=== PATIENT | female | born 1945 | race Caucasian/White ===

== ENCOUNTER 2018-11-23 15:08 | Inpatient (IN) | payer MEDICARE, OTHER ==
[~2018-11-23] VITALS: Ht 165.1 cm; Wt 59.4 kg
[2018-11-23] MEDS ORDERED: normal saline 1000ML IV soln IVB ONE (15:25)
[2018-11-23 15:48] LABS: BASOPHILS % (AUTO) 0.6 % (0-1); EOSINOPHILS % (AUTO) 0.5 % (0-6); HEMOGLOBIN 14.2 g/dl (12.0-16.0); LYMPHOCYTES # (AUTO) 1.8 X10'3 (1.1-4.8); LYMPHOCYTES % (AUTO) 28.7 % (21-51); MEAN CORPUSCULAR HEMOGLOBIN 32.2 PG (27.0-31.0); MEAN CORPUSCULAR HGB CONC 33.8 g/dL (33.0-36.5); MEAN CORPUSCULAR VOLUME 95.2 FL (78-98); MEAN PLATELET VOLUME 8.2 FL (7.4-10.4); MONOCYTES # (AUTO) 0.4 X10'3 (0-0.9); MONOCYTES % (AUTO) 6.9 % (2-12); NEUTROPHILS # (AUTO) 4.1 X10'3 (1.8-7.7); NEUTROPHILS % (AUTO) 63.3 % (42-75); PLATELET COUNT 245 X10'3 (140-440); RED BLOOD COUNT 4.41 X10'6 (4.20-5.60); RED CELL DISTRIBUTION WIDTH 12.9 % (11.5-14.5); WHITE BLOOD COUNT 6.5 X10'3 (4.5-11.0)
[2018-11-23 15:56] LABS: ALANINE AMINOTRANSFERASE 21 U/L (12-78); ALBUMIN 4.1 G/DL (3.4-5.0); ALBUMIN/GLOBULIN RATIO 0.9 (1.1-1.5); ALKALINE PHOSPHATASE 58 IU/L (46-116); ANION GAP 11 (8-16); ASPARTATE AMINO TRANSFERASE 19 U/L (10-37); BILIRUBIN,TOTAL 0.8 MG/DL (0.1-1.0); BLOOD UREA NITROGEN 12 MG/DL (7-18); BUN/CREATININE RATIO 11.3 (6.6-38.0); CALCIUM 10.7 MG/DL (8.5-10.1); CHLORIDE 100 MMOL/L (99-107); CREATININE 1.06 MG/DL (0.40-0.90); GLUCOSE 96 MG/DL (70-104); SODIUM 137 MMOL/L (135-145); TOTAL CARBON DIOXIDE 26.5 MMOL/L (24-32); TOTAL PROTEIN 8.7 G/DL (6.4-8.2); eGFR 51 ML/MIN
[2018-11-23] MEDS ORDERED: ipratropium/albuterol 3ml nebule NEB ONE (16:25)
[2018-11-23] MEDS ORDERED: OXYB5TAB16 PO (18:14)
[2018-11-23] MEDS ORDERED: OMEP-50 PO (18:14)
[2018-11-23] MEDS ORDERED: ACYC400T PO (18:14)
[2018-11-23] MEDS ORDERED: ESCI10TA54 PO (18:14)
[2018-11-23] MEDS ORDERED: ALBU18HF2 PO (18:14)
[2018-11-23] MEDS ORDERED: magnesium 4gm in 100ml NS 100 ML IV PRN (18:45)
[2018-11-23] MEDS ORDERED: magnesium hydroxide 30ml (MOM) UD suspension PO PRN (18:45)
[2018-11-23] MEDS ORDERED: magnesium Cl slow-release 64mg tablet PO PRN (18:45)
[2018-11-23] MEDS ORDERED: potassium CL 10mEq/100ml bag 100 ML IV PRN ×2 (18:45)
[2018-11-23] MEDS ORDERED: magnesium 2GM in 50ml NS 50 ML IV PRN (18:45)
[2018-11-23] MEDS ORDERED: metoclopramide 5 mg/ml inj IV PRN (18:45)
[2018-11-23] MEDS ORDERED: mag hydrox/Alum hydrox/simeth 30ml oral suspension PO PRN (18:45)
[2018-11-23] MEDS ORDERED: acetaminophen 325mg tablet PO PRN (18:45)
[2018-11-23] MEDS ORDERED: potassium Cl 20 mEq SR tablet PO PRN ×2 (18:45)
[2018-11-23 19:36] LABS: PHOSPHORUS 4.5 MG/DL (2.3-4.5)
[2018-11-23] MEDS: pantoprazole 40 MG vial IV SCH (19:59)
[2018-11-23] MEDS: normal saline 1000ml 1,000 ML IV SCH ×2 (19:59→22:59)
--- NOTE | 2018-11-23 20:11 | NUR ---
PT STATES SHE HAS A HARD TIME SLEEPING WHEN SHE IS NOT AT HOME. sHE IS REQUESTING MELATONIN
--- NOTE | 2018-11-23 21:53 | NUR ---
Patient resting comfortably on gurney, pending hospital admit. Family is at the bedside, I will continue to monitor.
[2018-11-23 23:20] VITALS: BP 141/77
[2018-11-23] MEDS ORDERED: guaiFENesin/DM/phenylephrine syrup 120ml bottle PO PRN (23:30)
[2018-11-23] MEDS ORDERED: guaiFENesin/DM 10ml UD oral syrup PO PRN (23:41)
[2018-11-23] MEDS ORDERED: FLU VACC QS2019-20 36MOS UP/PF 60 MCG/0.5 ML SYRINGE IMVAC ONE (23:45)
[2018-11-23] MEDS ORDERED: Melatonin 3mg tablet PO ONE (23:50)
[2018-11-24 04:58] LABS: HEMATOCRIT 38.1 % (35.0-45.0); HEMOGLOBIN 13.3 g/dl (12.0-16.0); MEAN CORPUSCULAR HEMOGLOBIN 32.8 PG (27.0-31.0); MEAN CORPUSCULAR HGB CONC 34.8 g/dL (33.0-36.5); MEAN CORPUSCULAR VOLUME 94.4 FL (78-98); MEAN PLATELET VOLUME 8.4 FL (7.4-10.4); PLATELET COUNT 198 X10'3 (140-440); RED BLOOD COUNT 4.04 X10'6 (4.20-5.60); RED CELL DISTRIBUTION WIDTH 12.8 % (11.5-14.5); WHITE BLOOD COUNT 5.7 X10'3 (4.5-11.0)
[2018-11-24 05:19] LABS: ALBUMIN 3.3 G/DL (3.4-5.0); ANION GAP 10 (8-16); BLOOD UREA NITROGEN 9 MG/DL (7-18); BUN/CREATININE RATIO 11.8 (6.6-38.0); CALCIUM 8.9 MG/DL (8.5-10.1); CHLORIDE 106 MMOL/L (99-107); CHOL/HDL RATIO 6.6 (0.00-4.99); CHOLESTEROL 185 MG/DL (0-200); CREATININE 0.76 MG/DL (0.40-0.90); GLUCOSE 90 MG/DL (70-104); HDL CHOLESTEROL 28 MG/DL (35-60); LDL CHOLESTEROL 136 MG/DL (50-100); MAGNESIUM 1.8 MG/DL (1.5-2.4); POTASSIUM 3.5 MMOL/L (3.5-5.1); SODIUM 140 MMOL/L (135-145); TOTAL CARBON DIOXIDE 24.3 MMOL/L (24-32); TRIGLYCERIDES 156 MG/DL (20-135); eGFR 75 ML/MIN
--- NOTE | 2018-11-24 06:01 | NUR ---
Problems reprioritized. Patient report given, questions answered & plan of care reviewed with CLAUDIO Suazo. Addendum: 11/24/18 at 0602 by Shawna Grady RN Amended: Links added.
[2018-11-24 07:17] VITALS: BP 130/78
[2018-11-24] MEDS: K and/or MAG REPLACEMENT MC SCH (08:00)
[2018-11-24] MEDS: ESCITALOPRAM OXALATE 5 MG TABLET PO SCH (08:00)
[2018-11-24] MEDS: pantoprazole 40 MG vial IV SCH ×2 (09:28→19:30)
[2018-11-24] MEDS ORDERED: iohexol 300mg/ml 100ml inj. ONE (09:41)
--- NOTE | 2018-11-24 09:47 | NUR ---
PAGER ID: [phone] MESSAGE: Jeannie Novak [id number] Pt requesting asthma inhaler. OK to order RT eval and tx? Lakeisha wooten
--- NOTE | 2018-11-24 12:11 | NUR ---
Abnormal lump to R side clavicle found during assessment - MD made aware, no new orders at this time.
[2018-11-24 12:37] VITALS: BP 138/73
--- NOTE | 2018-11-24 12:41 | NUR ---
Spoke with Nitin Espino pt. has a lower reflex preventing her to completely swallow but that it is not an upper throat issue. Recommends further evaluation via EGD. Notified .
[2018-11-24] MEDS ORDERED: FLU VACC QS2019-20 36MOS UP/PF 60 MCG/0.5 ML SYRINGE IMVAC ONE (16:00)
[2018-11-24] MEDS: normal saline 1000ml 1,000 ML IV SCH (16:21)
--- NOTE | 2018-11-24 16:28 | NUR ---
Malnutrition consult: Pt admit with worsening dysphagia, dysphonia, and reported wt loss with hx left vocal cord paralysis of unknown etiology. Per H&P pt states when she eats or drinks it feels like it would get stuck in her upper sternum and she would throw up. Pt seen at bedside reports low appetite and poor PO intake since she found out about the paralysis of the left vocal cord in June of this year. Pt states the last time she was able to eat without throwing her food back up was in July of this year. Pt reports not noting of this happening after consuming anything specific however reports she has tried eating multiple different foods. Pt reports UBW 160 lb, current documented wt is 132 lbs. This is severe wt loss of 17% in 5 months. Pt with no significant decrease in muscle strength, no edema, and no visible fat/muscle wasting. Given predicted suboptimal PO intake [employer] and severe wt loss pt meets criteria for malnutrition, MD notified. Pt s/p barium swallow study. Per ST pt with "no aspiration noted with food or liquids and with no delay in reflex however with mild residue at the base of the epiglottis which she cleared spontaneously. After a minute or two she began coughing due to some regurgitation." ST recommends NPO and and EGD to evaluate cause of regurgitation. Pt with an active clear liquid diet, d/w RN who states pt is in fact NPO, to be changed in EMR. Pt provided with RD contact information. Will continue to follow. Recommendations: 1) Advance to heart healthy diet as medically indicated 2) Nutrition support to meet nutrient needs if deemed unsafe for PO intake 3) Wt per rx Addendum: 11/24/18 at [address] Amended: Links added.
--- NOTE | 2018-11-24 18:36 | NUR ---
CHECKED ON PT. PT DOING WELL COMFORTABLE VISITING WITH A FRIEND. GAVE REPORT TO LACEY SNYDER.
--- NOTE | 2018-11-24 18:37 | NUR ---
Received report from Lakeisha SNYDER pt on RA, visitor at bedside, pt requested a popsicle., call light and items of freq use within reach.
[2018-11-24 19:00] VITALS: BP 180/99
[2018-11-24] MEDS ORDERED: albuterol 2.5 MG/3 ML nebule NEB PRN (19:05)
[2018-11-24] MEDS ORDERED: albuterol 2.5 MG/3 ML nebule ONE (19:17)
[2018-11-24] MEDS ORDERED: Melatonin 3mg tablet PO SCH (21:00)
[2018-11-24] MEDS: ondansetron/PF 4mg/2ml inj IV PRN (23:45)
[2018-11-25 00:11] VITALS: BP 133/75
[2018-11-25] MEDS: normal saline 1000ml 1,000 ML IV SCH ×2 (00:41→03:57)
--- NOTE | 2018-11-25 00:57 | NUR ---
Dr. olivarez ordered to continue tele for pt due to HR increasing to 140s when up
[2018-11-25 05:11] LABS: HEMOGLOBIN 13.4 g/dl (12.0-16.0); MEAN CORPUSCULAR HEMOGLOBIN 32.9 PG (27.0-31.0); MEAN CORPUSCULAR HGB CONC 34.5 g/dL (33.0-36.5); MEAN CORPUSCULAR VOLUME 95.5 FL (78-98); MEAN PLATELET VOLUME 8.3 FL (7.4-10.4); PLATELET COUNT 206 X10'3 (140-440); RED BLOOD COUNT 4.08 X10'6 (4.20-5.60); RED CELL DISTRIBUTION WIDTH 13.1 % (11.5-14.5); WHITE BLOOD COUNT 5.7 X10'3 (4.5-11.0)
[2018-11-25 05:19] LABS: ALBUMIN 3.6 G/DL (3.4-5.0); ANION GAP 11 (8-16); BLOOD UREA NITROGEN 6 MG/DL (7-18); BUN/CREATININE RATIO 9.1 (6.6-38.0); CALCIUM 8.7 MG/DL (8.5-10.1); CHLORIDE 106 MMOL/L (99-107); CREATININE 0.66 MG/DL (0.40-0.90); GLUCOSE 89 MG/DL (70-104); MAGNESIUM 1.8 MG/DL (1.5-2.4); POTASSIUM 3.7 MMOL/L (3.5-5.1); SODIUM 142 MMOL/L (135-145); eGFR 88 ML/MIN
--- NOTE | 2018-11-25 06:49 | NUR ---
Problems reprioritized. Patient report given, questions answered & plan of care reviewed with Lakeisah alvarez.
[2018-11-25 07:14] VITALS: BP 126/63
[2018-11-25] MEDS: K and/or MAG REPLACEMENT MC SCH (08:00)
[2018-11-25] MEDS: ESCITALOPRAM OXALATE 5 MG TABLET PO SCH (08:00)
[2018-11-25] MEDS: pantoprazole 40 MG vial IV SCH (08:40)
--- NOTE | 2018-11-25 10:31 | NUR ---
PAGER ID: [phone] MESSAGE: Lakeisha Surg [id number] Re: [id number] Scarlet would like to speak w/ you re: Broncoscopy? vs Pankaj please call Called Doris with respiratory she does not have anything scheduled for broncoscopy today please call her at [phone] when we find out the plan for today. Lakeisha SNYDER aware
[2018-11-25 10:52] VITALS: BP 141/78
[2018-11-25 12:00] VITALS: BP 141/78
[2018-11-25] MEDS: ondansetron/PF 4mg/2ml inj IV PRN (14:48)
--- NOTE | 2018-11-25 15:35 | NUR ---
Pt. discharged with all of her belongings. She plans to go down to [facility] for further care. VSS at this time. DC'd IV, bandage applied. Tele DC'd, cleaned and returned. Family here to drive patient. Aware to return to nearest ER if any issues breathing.
== END 2018-11-25 15:42 | disposition home or self-care (01) | DRG 181 ==
LOC: ER 15:08 → ED HOLD 19:12 → SUR 3N 22:40
PROVIDERS: ADMIT Family Medicine; ATTEND Internal Medicine
DX: C38.3 Malignant neoplasm of mediastinum, part unspecified (principal); N17.9 Acute kidney failure, unspecified; K29.70 Gastritis, unspecified, without bleeding; J38.01 Paralysis of vocal cords and larynx, unilateral; F32.9 Major depressive disorder, single episode, unspecified; R63.4 Abnormal weight loss; K57.90 Diverticulosis of intestine, part unspecified, without perforation or abscess without bleeding; R22.2 Localized swelling, mass and lump, trunk; J43.9 Emphysema, unspecified; I34.1 Nonrheumatic mitral (valve) prolapse; K21.9 Gastro-esophageal reflux disease without esophagitis; Z79.899 Other long term (current) drug therapy; Z68.21 Body mass index [BMI] 21.0-21.9, adult; Z23 Encounter for immunization; Z85.3 Personal history of malignant neoplasm of breast; Z85.828 Personal history of other malignant neoplasm of skin; Z87.19 Personal history of other diseases of the digestive system; Z87.442 Personal history of urinary calculi; Z87.891 Personal history of nicotine dependence; Z90.13 Acquired absence of bilateral breasts and nipples; Z90.711 Acquired absence of uterus with remaining cervical stump; Z92.21 Personal history of antineoplastic chemotherapy
CPT/HCPCS: 36415; 70470; 70491; 71045; 71260; 74177; 74230; 80048; 80053; 80061; 82948; 83735; 83880; 84100; 84443; 84484; 85025; 85027; 85610; 87081; 92508; 93005; 93306; 94640; 94760; 96365; 99285; C9113; G0378; J2405; J2765; J7030; Q2037; Q9967